=== PATIENT | female | born 1985 | race Caucasian/White ===

== ENCOUNTER 2021-08-24 08:39 | Emergency (ER) | payer OTHER ==
[~2021-08-24] VITALS: Ht 160 cm; Wt 60.3 kg
[2021-08-24] MEDS ORDERED: FOLIC ACID0.8 M1 PO (08:51)
== END 2021-08-24 15:22 | disposition home or self-care (01) ==
LOC: ER 08:39
DX: N93.9 Abnormal uterine and vaginal bleeding, unspecified (principal); Z20.822 Contact with and (suspected) exposure to COVID-19; Z88.8 Allergy status to other drugs, medicaments and biological substances

== ENCOUNTER 2021-11-09 22:12 | Emergency (ER) | payer OTHER ==
[~2021-11-09] VITALS: Ht 157.5 cm; Wt 55.3 kg
[~2021-11-09 22:12] MED LIST: FOLIC ACID0.8 M1 PO
== END 2021-11-10 01:50 | disposition home or self-care (01) ==
LOC: ER 22:12
DX: O20.9 Hemorrhage in early pregnancy, unspecified (principal); Z88.6 Allergy status to analgesic agent

== ENCOUNTER 2022-03-20 12:13 | Emergency (ER) | payer OTHER ==
[~2022-03-20] VITALS: Ht 157.5 cm; Wt 59.4 kg
[2022-03-20] MEDS ORDERED: DUI500 PO (14:29)
== END 2022-03-20 14:36 | disposition home or self-care (01) ==
LOC: ER 12:13
DX: O26.891 Other specified pregnancy related conditions, first trimester (principal); Z3A.12 12 weeks gestation of pregnancy; R82.81 Pyuria; Z88.8 Allergy status to other drugs, medicaments and biological substances

== ENCOUNTER 2022-03-20 15:42 | Outpatient (CLI) | payer OTHER ==
[~2022-03-20 15:42] MED LIST changes: +DUI500 PO
== END 2022-03-20 15:46 | disposition home or self-care (01) ==
LOC: LAB 15:42
PROVIDERS: ATTEND Obstetrics & Gynecology
DX: N39.0 Urinary tract infection, site not specified (principal)

== ENCOUNTER 2022-03-24 07:55 | Emergency (ER) | payer OTHER ==
[~2022-03-24] VITALS: Ht 157.5 cm; Wt 62.1 kg
== END 2022-03-24 12:13 | disposition home or self-care (01) ==
LOC: ER 07:55
DX: O23.41 Unspecified infection of urinary tract in pregnancy, first trimester (principal); Z3A.12 12 weeks gestation of pregnancy; Z88.8 Allergy status to other drugs, medicaments and biological substances

== ENCOUNTER 2022-04-02 08:33 | Outpatient (CLI) | payer OTHER | END 2022-04-02 10:45 | disposition home or self-care (01) | LOC: PRENATAL 08:33 | PROVIDERS: ATTEND Obstetrics & Gynecology Maternal & Fetal Medicine | DX: O36.80X0 Pregnancy with inconclusive fetal viability, not applicable or unspecified (principal); O34.219 Maternal care for unspecified type scar from previous cesarean delivery; O09.529 Supervision of elderly multigravida, unspecified trimester; Z3A.13 13 weeks gestation of pregnancy ==

== ENCOUNTER 2022-05-22 13:05 | Outpatient (CLI) | payer OTHER | END 2022-05-22 14:05 | disposition home or self-care (01) | LOC: PRENATAL 13:05 | PROVIDERS: ATTEND Obstetrics & Gynecology Maternal & Fetal Medicine | DX: O35.9XX0 Maternal care for (suspected) fetal abnormality and damage, unspecified, not applicable or unspecified (principal); O35.3XX0 Maternal care for (suspected) damage to fetus from viral disease in mother, not applicable or unspecified; O09.529 Supervision of elderly multigravida, unspecified trimester; O34.219 Maternal care for unspecified type scar from previous cesarean delivery; O09.219 Supervision of pregnancy with history of pre-term labor, unspecified trimester; Z3A.20 20 weeks gestation of pregnancy ==

== ENCOUNTER 2022-05-26 14:19 | Outpatient (CLI) | payer OTHER ==
[2022-05-26] MEDS ORDERED: PRENATAL 19 CH1 EAC1 PO (14:45)
== END 2022-05-27 12:54 | disposition home or self-care (01) ==
LOC: OBS/DEL 14:19
PROVIDERS: ATTEND Obstetrics & Gynecology
DX: O26.892 Other specified pregnancy related conditions, second trimester (principal); K21.9 Gastro-esophageal reflux disease without esophagitis; Z3A.21 21 weeks gestation of pregnancy; Z88.4 Allergy status to anesthetic agent

== ENCOUNTER 2022-08-14 14:05 | Outpatient (CLI) | payer OTHER ==
[~2022-08-14 14:05] MED LIST changes: +PRENATAL 19 CH1 EAC1 PO
== END 2022-08-14 15:39 | disposition home or self-care (01) ==
LOC: PRENATAL 14:05
PROVIDERS: ATTEND Obstetrics & Gynecology Maternal & Fetal Medicine
DX: O35.3XX0 Maternal care for (suspected) damage to fetus from viral disease in mother, not applicable or unspecified (principal); O09.529 Supervision of elderly multigravida, unspecified trimester; O34.219 Maternal care for unspecified type scar from previous cesarean delivery; O09.219 Supervision of pregnancy with history of pre-term labor, unspecified trimester; Z3A.32 32 weeks gestation of pregnancy

== ENCOUNTER 2022-09-12 11:43 | Outpatient (CLI) | payer OTHER ==
[~2022-09-12] VITALS: Ht 160 cm; Wt 80.3 kg
[2022-09-12] MEDS ORDERED: PRENATAL CAPLE1 EAC1 PO (11:47)
== END 2022-09-12 19:20 | disposition home or self-care (01) ==
LOC: OBS/DEL 11:43
PROVIDERS: ATTEND Obstetrics & Gynecology
DX: O26.893 Other specified pregnancy related conditions, third trimester (principal); R10.2 Pelvic and perineal pain; Z3A.36 36 weeks gestation of pregnancy; Z88.5 Allergy status to narcotic agent

== ENCOUNTER 2022-09-23 04:31 | Inpatient (IN) | payer OTHER ==
[~2022-09-23] VITALS: Ht 160 cm; Wt 3.6 kg
[~2022-09-23 04:31] MED LIST changes: +PRENATAL CAPLE1 EAC1 PO
[2022-09-26] MEDS ORDERED: IBUPROFEN800 MG PO (09:59)
== END 2022-09-26 10:49 | disposition home or self-care (01) | DRG 788 ==
LOC: LDR 04:31 → OB/GYN 04:31 → O/R 10:18 → OB/GYN 11:37
PROVIDERS: ADMIT Obstetrics & Gynecology; ATTEND Obstetrics & Gynecology
PROC: 4A1HXCZ Monitoring of Products of Conception, Cardiac Rate, External Approach (ICD-10-PCS; 2022-09-23)
PROC: 10D00Z1 Extraction of Products of Conception, Low, Open Approach (ICD-10-PCS; principal; 2022-09-23 09:00)
DX: O36.63X0 Maternal care for excessive fetal growth, third trimester, not applicable or unspecified (principal); O34.211 Maternal care for low transverse scar from previous cesarean delivery; Z3A.38 38 weeks gestation of pregnancy; Z37.0 Single live birth; Z20.822 Contact with and (suspected) exposure to COVID-19

== ENCOUNTER 2024-07-24 08:47 | Outpatient (CLI) | payer OTHER ==
[~2024-07-24 08:47] MED LIST changes: +IBUPROFEN800 MG PO
== END 2024-07-24 08:49 | disposition home or self-care (01) ==
LOC: PRENATAL 08:47
PROVIDERS: ATTEND Obstetrics & Gynecology Maternal & Fetal Medicine
DX: O36.80X0 Pregnancy with inconclusive fetal viability, not applicable or unspecified (principal); Z36.82 Encounter for antenatal screening for nuchal translucency; O34.219 Maternal care for unspecified type scar from previous cesarean delivery; O09.529 Supervision of elderly multigravida, unspecified trimester; Z14.8 Genetic carrier of other disease; Z3A.12 12 weeks gestation of pregnancy

== ENCOUNTER 2024-07-27 17:44 | Emergency (ER) | payer OTHER ==
[~2024-07-27] VITALS: Ht 157.5 cm; Wt 70.8 kg
[2024-07-27] MEDS ORDERED: FAMOTIDINE40 MG PO (18:29)
[2024-07-27] MEDS ORDERED: ZOFRAN8 MG (18:31)
[2024-07-27 20:28] LABS: BASO % 0.6 % (0.1-1.2); EOS # 0.16 (0.04-0.54); EOS % 1.5 % (0.7-7.0); HEMATOCRIT 34.6 % (34.1-44.9); HEMOGLOBIN 11.5 g/dL (11.2-15.7); LYMPH % 16.1 % (19.3-53.1); MONO # 0.81 (0.24-0.82); MONO % 7.7 % (4.7-12.5); NEUT # 7.81 (1.56-6.13); NEUT % 73.8 % (34.0-71.1); PLATELET COUNT 231 K/uL (163-369); RED CELL DISTRIBUTION WIDTH 13.4 % (11.6-14.4)
[2024-07-27 21:58] LABS: PH,URINE 6.5 (5.0-8.0); URINE APPEARANCE Clear; URINE BILIRRUBIN Negative (NEGATIVE); URINE BLOOD Negative; URINE COLOR Yellow; URINE GLUCOSE Negative (NEGATIVE); URINE KETONE Negative (NEGATIVE); URINE LEUKOCYTE Negative; URINE NITRATE Negative; URINE PROTEIN Negative (NEGATIVE); URINE UROBILINOGEN 0.2 E.U./dl
[2024-07-27 21:59] LABS: URINE BACTERIA 867.7 uL (0.0-1933); URINE RBC 8.3 uL (0.0-20.8); URINE WBC 9.1 uL (0.0-23.2)
[2024-07-27 22:06] LABS: URINE CAST 0.14 uL (0.0-1.40)
== END 2024-07-27 23:23 | disposition home or self-care (01) ==
LOC: ER 19:08
PROVIDERS: General Practice
DX: O20.8 Other hemorrhage in early pregnancy (principal); Z3A.13 13 weeks gestation of pregnancy; Z88.5 Allergy status to narcotic agent

== ENCOUNTER 2024-07-31 10:22 | Outpatient (CLI) | payer OTHER ==
[~2024-07-31 10:22] MED LIST changes: +FAMOTIDINE40 MG PO; +ZOFRAN8 MG
== END 2024-07-31 10:26 | disposition home or self-care (01) ==
LOC: SONOGRAMA 10:22
PROVIDERS: ATTEND Obstetrics & Gynecology
DX: O02.1 Missed abortion (principal)

== ENCOUNTER 2024-07-31 13:19 | Outpatient (CLI) | payer OTHER ==
[2024-07-31 14:09] LABS: BASO % 0.6 % (0.1-1.2); EOS # 0.11 (0.04-0.54); HEMATOCRIT 36.9 % (34.1-44.9); HEMOGLOBIN 12.3 g/dL (11.2-15.7); LYMPH # 1.58 (1.18-3.74); LYMPH % 14.6 % (19.3-53.1); MEAN CORPUSCULAR HEMOGLOBIN 28.3 pg (25.6-32.2); MONO # 0.68 (0.24-0.82); MONO % 6.3 % (4.7-12.5); NEUT # 8.33 (1.56-6.13); NEUT % 77.2 % (34.0-71.1); PLATELET COUNT 249 K/uL (163-369); RED BLOOD COUNT 4.35 M/uL (3.93-5.22); RED CELL DISTRIBUTION WIDTH 13.3 % (11.6-14.4)
[2024-07-31 14:32] LABS: INR 0.99; PARTIAL THROMBOPLASTIN TIME 24.4 SECONDS (22.0-34.0); PROTHROMBIN TIME 10.8 SECONDS (9.0-11.5)
== END 2024-07-31 13:23 | disposition home or self-care (01) ==
LOC: LAB 13:19
PROVIDERS: ATTEND Obstetrics & Gynecology
DX: D64.9 Anemia, unspecified (principal)

== ENCOUNTER 2024-08-01 08:51 | Day surgery (SDC) | payer OTHER ==
[2024-08-01] MEDS ORDERED: POVIDONE-IODINE 118 ML BOTT TOP ONE ×2 (15:06→17:00)
[2024-08-01] MEDS ORDERED: OXYTOCIN 10 UNITS/ML VIAL ONE (18:04)
[2024-08-01] MEDS ORDERED: MORPHINE SULFATE 4 MG/ML VIAL IV SCH (21:00)
[2024-08-01] MEDS ORDERED: KETOROLAC TROMETHAMINE 60 MG VIAL IM ONE (23:00)
== END 2024-08-02 01:30 | disposition home or self-care (01) ==
LOC: CIR.AMB 08:51
PROVIDERS: ATTEND Obstetrics & Gynecology
DX: O02.1 Missed abortion (principal); Z88.5 Allergy status to narcotic agent

== ENCOUNTER 2024-08-12 04:51 | Emergency (ER) | payer OTHER ==
[~2024-08-12] VITALS: Ht 167.6 cm; Wt 72.6 kg
[2024-08-12] MEDS ORDERED: 0.9 % SODIUM CHLORIDE 1,000 ML IV STA (05:05)
[2024-08-12] MEDS ORDERED: MORPHINE SULFATE 4 MG/ML VIAL IV STA (05:06)
[2024-08-12] MEDS ORDERED: KETOROLAC TROMETHAMINE 30 MG VIAL IV STA (05:06)
[2024-08-12] MEDS ORDERED: ONDANSETRON HCL 2 MG/ML VIAL IV STA (05:24)
[2024-08-12 05:39] LABS: BASO % 0.7 % (0.1-1.2); EOS # 0.19 (0.04-0.54); EOS % 2.1 % (0.7-7.0); LYMPH # 1.79 (1.18-3.74); LYMPH % 19.7 % (19.3-53.1); MEAN PLATELET VOLUME 11.50 fl (9.4-12.4); MONO # 0.63 (0.24-0.82); MONO % 6.9 % (4.7-12.5); NEUT # 6.36 (1.56-6.13); NEUT % 70.2 % (34.0-71.1); RED CELL DISTRIBUTION WIDTH 13.1 % (11.6-14.4)
[2024-08-12 05:58] LABS: INR 0.99
[2024-08-12 06:18] LABS: ALT/SGPT 18.0 U/L (12-78); AST/SGOT 14.0 U/L (15-37); BILIRUBIN TOTAL 0.19 mg/dL (0.3-1.2); BUN CREA RATIO 14.0 (7.0-25.0); CREATININE SERUM 0.63 mg/dL (0.55-1.02); GFR 105.2; GLOBULINA 3.5 G/DL (2.4-3.5); GLUCOSE FASTING 107.0 mg/dL (65-100); HCG QUANTITATIVE 1750.0 mUI/mL (1-3); OSMOLALITY SERUM 279.0 MOSM/KG (275-295)
[2024-08-12] MEDS ORDERED: TRAMADOL HCL 50 MG TABLET PO STA (06:35)
== END 2024-08-12 13:01 | disposition home or self-care (01) ==
LOC: ER 04:51
DX: R10.2 Pelvic and perineal pain (principal); N93.8 Other specified abnormal uterine and vaginal bleeding; Z88.6 Allergy status to analgesic agent; O02.1 Missed abortion

== ENCOUNTER 2024-08-16 14:00 | Outpatient (CLI) | payer OTHER | END 2024-08-16 14:02 | disposition home or self-care (01) | LOC: SONOGRAMA 14:00 | DX: O03.34 Damage to pelvic organs following incomplete spontaneous abortion (principal) ==